=== PATIENT | male | born 1970 | race Asian ===

== ENCOUNTER 2020-11-28 11:51 | Emergency (ER) | payer OTHER ==
[~2020-11-28] VITALS: Ht 175.3 cm; Wt 79.4 kg
[2020-11-28 11:57] VITALS: BP 131/81; TEMP 97.6
== END 2020-11-28 12:53 | disposition home or self-care (01) ==
LOC: ED 11:51
DX: S93.491A Sprain of other ligament of right ankle, initial encounter (principal); X50.1XXA Overexertion from prolonged static or awkward postures, initial encounter; Y92.89 Other specified places as the place of occurrence of the external cause
CPT/HCPCS: 99283

== ENCOUNTER 2021-07-25 15:04 | Emergency (ER) | payer OTHER ==
[~2021-07-25] VITALS: Ht 175.3 cm; Wt 79.4 kg
[2021-07-25 15:08] VITALS: TEMP 97
[2021-07-25 16:55] VITALS: BP 130/65
== END 2021-07-25 16:55 | disposition home or self-care (01) ==
LOC: ED 15:04
PROC: 0HQGXZZ Repair Left Hand Skin, External Approach (ICD-10-PCS; principal; 2021-07-25)
DX: S61.213A Laceration without foreign body of left middle finger without damage to nail, initial encounter (principal); W27.0XXA Contact with workbench tool, initial encounter; Y92.89 Other specified places as the place of occurrence of the external cause
CPT/HCPCS: 90471; 90715; 96372; 99283; J0690; J1885; J7040